=== PATIENT | male | born 1980 | race African-American/Black ===

== ENCOUNTER 2020-03-31 15:05 | Outpatient (REF) | payer OTHER, SELFPAY ==
[2020-03-31 16:52] LABS: Hematocrit 43.1 % (42-52); Hemoglobin 15.2 g/dl (14.0-18.0); Mean Corpuscular HGB Conc 35.3 g/dl (31.0-36.0); Mean Corpuscular Hemoglobin 28.8 pg (27.0-33.0); Mean Corpuscular Volume 81.8 fL (80-98); Mean Platelet Volume 11.2 fL (9.4-12.4); Platelet Count 206 X10*3/uL (160-400); Red Blood Count 5.27 X10*6/uL (4.60-5.80); Red Cell Distribution Width 11.9 % (11.0-16.0); White Blood Count 4.4 X10*3/uL (4.8-10.8)
[2020-03-31 16:59] LABS: Estimated Average Glucose 266 mg/dL; Hemoglobin A1c % 10.9 %
[2020-03-31 17:33] LABS: Alanine Aminotransferase 28 U/L (0-40); Albumin Level 4.8 g/dL (3.5-5.0); Alkaline Phosphatase 80 U/L (39-117); Anion Gap 18 (12-20); Aspartate Amino Transferase 21 U/L (5-37); Bilirubin Direct 0.3 mg/dL (0.0-0.5); Bilirubin Total 1.3 mg/dL (0.0-1.0); Blood Urea Nitrogen 14 mg/dL (9-16); Calcium 9.7 mg/dL (8.4-10.2); Carbon Dioxide 21 mmol/L (22-29); Chloride 96 mmol/L (96-108); Cholesterol 278 mg/dL; Estimated Glomerular Filt Rate 53; Glucose Random 412 mg/dL (60-115); HDL Cholesterol 32 mg/dL; Potassium 4.1 mmol/l (3.3-5.1); Sodium 131 mmol/L (135-145); Total Protein 8.2 g/dL (6.5-8.0); Triglycerides > 1250 mg/dL
== END 2020-03-31 15:06 | disposition home or self-care (01) ==
LOC: HO.HMGCLDS 15:05
PROVIDERS: PCP Nurse Practitioner Family; Visit Provider Internal Medicine
DX: R73.9 Hyperglycemia, unspecified (principal)
CPT/HCPCS: 36415; 80048; 80061; 80076; 83036; 85027

== ENCOUNTER 2020-04-12 08:04 | Outpatient (REF) | payer OTHER, SELFPAY ==
[2020-04-12 11:45] LABS: Alanine Aminotransferase 41 U/L (0-40); Albumin Level 4.2 g/dL (3.5-5.0); Alkaline Phosphatase 53 U/L (39-117); Anion Gap 14 (12-20); Aspartate Amino Transferase 28 U/L (5-37); Bilirubin Total 1.5 mg/dL (0.0-1.0); Blood Urea Nitrogen 12 mg/dL (9-16); Calcium 8.9 mg/dL (8.4-10.2); Carbon Dioxide 22 mmol/L (22-29); Chloride 109 mmol/L (96-108); Cholesterol 117 mg/dL; Estimated Glomerular Filt Rate > 60; Glucose Fasting 84 mg/dL (60-99); HDL Cholesterol 30 mg/dL; LDL Cholesterol Calculated 66 mg/dl; Potassium 3.8 mmol/L (3.3-5.1); Sodium 141 mmol/L (135-145); Total Protein 6.6 g/dL (6.5-8.0); Triglycerides 107 mg/dL
[2020-04-12 12:03] LABS: Microalbum/Creatinine Ratio Ur 2.6 ug/mg cr
== END 2020-04-12 08:05 | disposition home or self-care (01) ==
LOC: HO.HMGCLDS 08:04
PROVIDERS: PCP Nurse Practitioner Family; Visit Provider Nurse Practitioner Family
DX: R73.9 Hyperglycemia, unspecified (principal)
CPT/HCPCS: 36415; 80053; 80061; 82043

== ENCOUNTER 2020-05-03 10:58 | Outpatient (REF) | payer OTHER, SELFPAY ==
--- NOTE | ~2020-05-03 | US_ITS ---
EXAMINATION: US THYROID CLINICAL INFORMATION: Localized swelling, mass and lump, neck. COMPARISON: None TECHNIQUE: Linear transducer woodard-scale and color Doppler examination with attention to the region of the thyroid. FINDINGS: SIZE: Measurements of the thyroid lobes and nodules are given in sagittal, anteroposterior and transverse dimensions respectively. Right Thyroid Lobe: 5.6 x 1.8 x 2.0 cm, volume 10.5 mL. Parenchyma: The gland echotexture is homogeneous. Thyroid vascularity is normal. Left Thyroid Lobe: 5.3 x 1.7 x 1.9 cm, volume 9.0 mL. Parenchyma: The gland echotexture is homogeneous. Thyroid vascularity is normal. Isthmus: 0.7 cm in maximum AP dimension. No focal thyroid nodule is seen. NODES: 1.05 cm left level 3 lymph node. As a central echogenic fatty hilum. Per the mobile ui developer's notes, this is seen at the level of the palpable abnormality of concern. Inferiorly, at level 4 there is a 1.3 cm rounded lymph node. US/US thyroid IMPRESSION: Normal appearance of the thyroid. No thyroid nodules seen. Per the mobile ui developer's notes, the palpable abnormality of concern corresponds to a prominent but not pathologically enlarged left level 3 lymph node that has benign morphologic features. Inferiorly there is a rounded, borderline enlarged 1.3 cm left level 4 lymph node. This has a somewhat heterogeneous appearance and is nonspecific. Consider further evaluation with contrast-enhanced neck CT as clinically indicated.
[2020-05-03 14:01] LABS: MANUAL DIFF FLAG NO
[2020-05-03 14:14] LABS: Basophils Percent Auto 0.7 % (0-2); Eosinophils Absolute Auto 0.1 X10*3/uL (0.0-0.4); Eosinophils Percent Auto 1.5 % (0-4); Hematocrit 39.2 % (42-52); Hemoglobin 13.2 g/dl (14.0-18.0); Lymphocytes Absolute Auto 2.1 X10*3/uL (1.2-4.9); Mean Corpuscular HGB Conc 33.7 g/dl (31.0-36.0); Mean Corpuscular Hemoglobin 28.9 pg (27.0-33.0); Mean Corpuscular Volume 85.8 fL (80-98); Mean Platelet Volume 10.5 fL (9.4-12.4); Monocytes Absolute Auto 0.4 X10*3/uL (0.1-1.2); Monocytes Percent Auto 10.9 % (2-11); Neutrophils Absolute Auto 1.5 X10*3/uL (2.0-8.3); Neutrophils Percent Auto 35.9 % (45-73); Platelet Count 226 X10*3/uL (160-400); Red Blood Count 4.57 X10*6/uL (4.60-5.80)
[2020-05-03 14:39] LABS: Alanine Aminotransferase 22 U/L (0-40); Albumin Level 4.4 g/dL (3.5-5.0); Alkaline Phosphatase 54 U/L (39-117); Anion Gap 12 (12-20); Aspartate Amino Transferase 19 U/L (5-37); Bilirubin Direct 0.2 mg/dL (0.0-0.5); Bilirubin Total 0.5 mg/dL (0.0-1.0); Blood Urea Nitrogen 19 mg/dL (9-16); Carbon Dioxide 27 mmol/L (22-29); Chloride 104 mmol/L (96-108); Estimated Glomerular Filt Rate > 60; Glucose Random 92 mg/dL (60-115); Potassium 4.3 mmol/L (3.3-5.1); Sodium 139 mmol/L (135-145); Total Protein 6.8 g/dL (6.5-8.0)
[2020-05-03 14:55] LABS: Free T4 (Free Thyroxine) 0.89 ng/dL (0.71-1.85)
[2020-05-03 15:04] LABS: Thyroid Stimulating Hormone 1.52 uIU/mL (0.32-4.0)
== END 2020-05-03 10:59 | disposition home or self-care (01) ==
LOC: HO.HMGCX 10:58
PROVIDERS: PCP Nurse Practitioner Family; Visit Provider Nurse Practitioner Family
DX: R22.1 Localized swelling, mass and lump, neck (principal); R17 Unspecified jaundice
CPT/HCPCS: 36415; 76536; 80053; 82248; 84439; 84443; 85025

== ENCOUNTER 2020-08-15 06:46 | Outpatient (REF) | payer OTHER, SELFPAY ==
[2020-08-15 12:16] LABS: Estimated Average Glucose 128 mg/dL; Hemoglobin A1C 152.0811 umol/L; Hemoglobin A1c % 6.1 %
[2020-08-15 12:18] LABS: Alanine Aminotransferase 18 U/L (0-40); Alkaline Phosphatase 57 U/L (39-117); Anion Gap 11 (12-20); Aspartate Amino Transferase 21 U/L (5-37); Bilirubin Total 0.5 mg/dL (0.0-1.0); Blood Urea Nitrogen 14 mg/dL (9-16); Calcium 8.9 mg/dL (8.4-10.2); Carbon Dioxide 22 mmol/L (22-29); Chloride 112 mmol/L (96-108); Cholesterol 142 mg/dL; Estimated Glomerular Filt Rate > 60; Glucose Fasting 88 mg/dL (60-99); HDL Cholesterol 32 mg/dL; LDL Cholesterol Calculated 71 mg/dl; Sodium 141 mmol/L (135-145); Total Protein 6.5 g/dL (6.5-8.0); Triglycerides 199 mg/dL
== END 2020-08-15 06:47 | disposition home or self-care (01) ==
LOC: HO.HMGCLDS 06:46
PROVIDERS: PCP Nurse Practitioner Family; Visit Provider Nurse Practitioner Family
DX: E11.9 Type 2 diabetes mellitus without complications (principal); R17 Unspecified jaundice
CPT/HCPCS: 36415; 80053; 80061; 83036

== ENCOUNTER 2020-12-29 08:28 | Outpatient (REF) | payer OTHER, SELFPAY ==
--- NOTE | ~2020-12-29 | XR_ITS ---
EXAMINATION: XR first finger, RIGHT CLINICAL INFORMATION: Pain COMPARISON: None TECHNIQUE: Three views of the right thumb. FINDINGS: There is no evidence of acute fracture or dislocation of the right thumb. No significant soft tissue swelling is appreciated. No radiopaque foreign body. Joint spaces maintained. XR/XR finger RT min 2V IMPRESSION: No significant bony abnormality of the right thumb.
[2020-12-29 11:30] LABS: Appearance Urine CLEAR; Color Urine YELLOW; Glucose Urine UA NEG (NEG); Leukocyte Esterase Urine NEG (NEG); Nitrite Urine NEG (NEG); PH 5.5 (5.0-8.0); Specific Gravity - Urine >= 1.030 (1.005-1.025); Urine Blood NEG (NEG); Urine Ketones NEG (NEG); Urine Protein NEG (NEG-TRACE)
[2020-12-29 11:58] LABS: Estimated Average Glucose 123 mg/dL; Hemoglobin A1c % 5.9 %
[2020-12-29 11:59] LABS: Alanine Aminotransferase 35 U/L (0-40); Albumin Level 4.3 g/dL (3.5-5.0); Alkaline Phosphatase 59 U/L (39-117); Anion Gap 12 (12-20); Aspartate Amino Transferase 21 U/L (5-37); Bilirubin Total 0.8 mg/dL (0.0-1.0); Blood Urea Nitrogen 10 mg/dL (9-16); Calcium 9.2 mg/dL (8.4-10.2); Carbon Dioxide 24 mmol/L (22-29); Chloride 110 mmol/L (96-108); Cholesterol 177 mg/dL; Estimated Glomerular Filt Rate > 60; Glucose Fasting 101 mg/dL (60-99); HDL Cholesterol 42 mg/dL; LDL Cholesterol Calculated 119 mg/dl; Potassium 4.1 mmol/L (3.3-5.1); Sodium 142 mmol/L (135-145); Total Protein 6.9 g/dL (6.5-8.0); Triglycerides 83 mg/dL
== END 2020-12-29 08:29 | disposition home or self-care (01) ==
LOC: HO.HMGCX 08:28
PROVIDERS: PCP Nurse Practitioner Family; Visit Provider Nurse Practitioner Family
DX: M79.644 Pain in right finger(s) (principal); E11.9 Type 2 diabetes mellitus without complications
CPT/HCPCS: 36415; 73140; 80053; 80061; 81003; 83036

== ENCOUNTER 2021-01-08 08:19 | Outpatient (REF) | payer OTHER, SELFPAY ==
--- NOTE | ~2021-01-08 | XR_ITS ---
EXAMINATION: BILATERAL KNEE X-RAY CLINICAL INFORMATION: Pain COMPARISON: Previous knee x-rays March 2018 TECHNIQUE: Standing AP view of both knees and sunrise and lateral view of the right knee FINDINGS: Right: Bone alignment is normal. No fracture or dislocation is seen. There is evidence of previous ACL repair. There is arthritis at the medial femoral tibial joint with joint space narrowing and osteophyte formation. There is lateral degenerative meniscal calcification. There are small osteophytes at the patellofemoral joint. There is no joint effusion. Standing AP view of the left knee demonstrates evidence of previous ACL repair. XR/XR knee standing BI IMPRESSION: Right knee: Evidence of previous ACL repair. Arthritis. Left knee: Evidence of previous ACL repair.
--- NOTE | ~2021-01-08 | XR_ITS ---
EXAMINATION: BILATERAL KNEE X-RAY CLINICAL INFORMATION: Pain COMPARISON: Previous knee x-rays March 2018 TECHNIQUE: Standing AP view of both knees and sunrise and lateral view of the right knee FINDINGS: Right: Bone alignment is normal. No fracture or dislocation is seen. There is evidence of previous ACL repair. There is arthritis at the medial femoral tibial joint with joint space narrowing and osteophyte formation. There is lateral degenerative meniscal calcification. There are small osteophytes at the patellofemoral joint. There is no joint effusion. Standing AP view of the left knee demonstrates evidence of previous ACL repair. XR/XR knee RT 2V IMPRESSION: Right knee: Evidence of previous ACL repair. Arthritis. Left knee: Evidence of previous ACL repair.
== END 2021-01-08 08:20 | disposition home or self-care (01) ==
LOC: HO.HOSX 08:19
PROVIDERS: Visit Provider Orthopaedic Surgery
DX: M17.30 Unilateral post-traumatic osteoarthritis, unspecified knee (principal); Z98.890 Other specified postprocedural states
CPT/HCPCS: 73560; 73565; 99212; J1100

== ENCOUNTER 2021-01-10 12:34 | Outpatient (REF) | payer OTHER, SELFPAY ==
--- NOTE | ~2021-01-10 | XR_ITS ---
EXAMINATION: XR HAND, RIGHT CLINICAL INFORMATION: Pain. COMPARISON: None TECHNIQUE: PA, lateral, and oblique views of the right hand. FINDINGS: No acute fracture or dislocation. There is no bony erosion. Alignment is felt to be within normal limits. No significant degenerative change is seen here. There is no soft tissue calcification. XR/XR hand RT min 3V IMPRESSION: No bony finding.
== END 2021-01-10 12:35 | disposition home or self-care (01) ==
LOC: HO.HOSX 12:34
PROVIDERS: PCP Nurse Practitioner Family; Visit Provider Orthopaedic Surgery
DX: M79.644 Pain in right finger(s) (principal); M79.641 Pain in right hand
CPT/HCPCS: 73130; 99202

== ENCOUNTER 2021-01-23 08:15 | Outpatient (REF) | payer OTHER, SELFPAY ==
--- NOTE | ~2021-01-23 | MR_ITS ---
EXAMINATION: MR HAND WITHOUT CONTRAST, RIGHT CLINICAL INFORMATION: Pain in right hand. Patient reports injury 12/23/2020 with pain and weakness first carpal/metacarpal. COMPARISON: XR right hand 01/10/2021. TECHNIQUE: MRI of the right hand was obtained using routine sequences on a high-field strength magnet. FINDINGS: There is suboptimal evaluation of the articular cartilage in the visualized joints because of the small nature of the joints relative to the large [id number] to include most of the hand. There appears to be some narrowing of the 1st carpometacarpal joint which is likely indicative of cartilage thinning. There is a small effusion of the 1st CMC joint but only extending into a volar recess of the joint. There is no fracture or malalignment. The tendons and ligaments are unremarkable. 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
== END 2021-01-23 08:16 | disposition home or self-care (01) ==
LOC: HO.MRI 08:15
PROVIDERS: Visit Provider Orthopaedic Surgery
DX: M79.641 Pain in right hand (principal)
CPT/HCPCS: 73218

== ENCOUNTER → 2021-01-31 09:59 | Outpatient (BNVA) | payer OTHER, SELFPAY | PROVIDERS: PCP Nurse Practitioner Family; Visit Provider Orthopaedic Surgery | DX: M79.644 Pain in right finger(s) (principal) | CPT/HCPCS: 20605; 99212; J1020 ==

== ENCOUNTER → 2021-02-15 08:33 | Outpatient (BNVA) | payer OTHER, SELFPAY | PROVIDERS: PCP Nurse Practitioner Family; Visit Provider Orthopaedic Surgery | DX: M17.30 Unilateral post-traumatic osteoarthritis, unspecified knee (principal); Z98.890 Other specified postprocedural states | CPT/HCPCS: 99212 ==

== ENCOUNTER 2021-02-21 09:04 | Outpatient (REF) | payer OTHER, SELFPAY ==
[2021-02-21 12:18] LABS: Syphilis Screen Nonreactive (Nonreactive)
[2021-02-21 12:26] LABS: HIV AB/AG Nonreactive (Nonreactive); HIV Num 1 0.06 S/CO (0.00-0.99)
[2021-02-21 16:18] LABS: CT PCR NOT DETECTED (Not Detect.); NG PCR NOT DETECTED (Not Detect.)
[2021-02-23 05:27] LABS: Herpes Simplex Type 1 IgG <0.90 index; Herpes Simplex Type 2 IgG <0.90 index
== END 2021-02-21 09:05 | disposition home or self-care (01) ==
LOC: HO.HMGCLDS 09:04
PROVIDERS: PCP Nurse Practitioner Family; Visit Provider Nurse Practitioner Family
DX: Z01.84 Encounter for antibody response examination (principal); Z11.3 Encounter for screening for infections with a predominantly sexual mode of transmission; Z11.4 Encounter for screening for human immunodeficiency virus [HIV]
CPT/HCPCS: 86695; 86696; 86780; 87389; 87491; 87591

== ENCOUNTER 2021-03-22 09:18 | Outpatient (REF) | payer OTHER, SELFPAY ==
[2021-03-22 11:00] LABS: COVID-19 Test Negative (Negative)
== END 2021-03-22 09:19 | disposition home or self-care (01) ==
LOC: HO.LAB 09:18
PROVIDERS: Visit Provider Internal Medicine
DX: Z20.822 Contact with and (suspected) exposure to COVID-19 (principal)
CPT/HCPCS: 87635; C9803

== ENCOUNTER 2021-06-12 07:37 | Outpatient (REF) | payer OTHER, SELFPAY ==
[2021-06-12 11:54] LABS: Alanine Aminotransferase 31 U/L (0-40); Albumin Level 4.4 g/dL (3.5-5.0); Alkaline Phosphatase 55 U/L (39-117); Anion Gap 11 (12-20); Aspartate Amino Transferase 20 U/L (5-37); Bilirubin Total 1.1 mg/dL (0.0-1.0); Blood Urea Nitrogen 15 mg/dL (9-16); Calcium 9.3 mg/dL (8.4-10.2); Carbon Dioxide 28 mmol/L (22-29); Chloride 106 mmol/L (96-108); Cholesterol 236 mg/dL; Estimated Glomerular Filt Rate > 60; Glucose Fasting 114 mg/dL (60-99); HDL Cholesterol 38 mg/dL; LDL Cholesterol Calculated 154 mg/dl; Potassium 4.1 mmol/L (3.3-5.1); Sodium 141 mmol/L (135-145); Total Protein 7.2 g/dL (6.5-8.0); Triglycerides 221 mg/dL
[2021-06-14 23:32] LABS: Herpes Simplex Type 1 IgG <0.90 index; Herpes Simplex Type 2 IgG <0.90 index
== END 2021-06-12 07:38 | disposition home or self-care (01) ==
LOC: HO.HMGCLDS 07:37
PROVIDERS: Visit Provider Nurse Practitioner Family
DX: Z11.3 Encounter for screening for infections with a predominantly sexual mode of transmission (principal); E78.5 Hyperlipidemia, unspecified
CPT/HCPCS: 36415; 80053; 80061; 86695; 86696

== ENCOUNTER 2022-05-07 17:06 | Outpatient (REF) | payer OTHER, SELFPAY ==
[2022-05-07 18:12] LABS: Influenza A PCR NEGATIVE (Negative); Influenza B PCR NEGATIVE (Negative); Resp Syncy Virus RNA Qual PCR NEGATIVE (Negative); SARS COV2 PCR INHOUSE NEGATIVE (Negative)
== END 2022-05-07 17:07 | disposition home or self-care (01) ==
LOC: HO.LNP 17:06
PROVIDERS: Visit Provider Nurse Practitioner Family
DX: J31.0 Chronic rhinitis (principal); Z20.822 Contact with and (suspected) exposure to COVID-19
CPT/HCPCS: 0241U

== ENCOUNTER 2022-10-25 09:08 | Outpatient (AMB) | payer OTHER, SELFPAY ==
[2022-10-25 09:11] VITALS: BP 118/74; PULSE 82; TEMP 36.2; O2SAT 96; BMI 37.3
--- NOTE | 2022-10-25 09:11 | MHC.OFFWIV ---
Intake Vital Signs 10/25/22 09:11 Height 6 ft Weight 275 lb BMI 37.3 BP 118/74 Blood Pressure Location Lt brachial Position Sitting Pulse 82 Pulse Source Pulse Oximeter Temp 97.1 F Temp Source Temporal Artery Scan Pulse Oximetry (%) 96 Intake Visit Reasons: EP Back/Groin pain 1 month Intake Note: pt is here for back/groin pain for 1x month Patient Tobacco Use Status: Former Tobacco user Allergies No Known Allergies [No Known Allergies*] Allergy (Verified 10/25/22 09:11) Do you need a note to return to daycare/school/sports/work: Yes HPI EP Back/Groin pain 1 month HPI Details 42-year-old male presents to the office for a sick visit. For the past month patient is complaining of back pain. His job entails a 1 [address] ride in the morning. He started reporting sharp pain on the right side of the lower back sometimes radiating to below the scrotum. Pain is worse when he is sitting upright. And relieved when he is lying down. No urinary difficulties. Bowel movements are regular. But experiences pain when he sits on the toilet. History of low back pain in the past. 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 He prefers not to take the muscle relaxants. [facility] Surgical History History of left knee surgery History of medial meniscus repair of right knee History of right knee surgery Family History Father No problems noted. Mother No problems noted. Social History Housing: House Alcohol intake: never Patient Tobacco Use Status: Former Tobacco user Years Smoked: quit 2016 e-Cigarette/Vaping Use: Currently Using Second Hand Smoke Exposure: No service: Yes Current occupational status: employed Current occupation: [employer] Current occupational exposures/hazards: No Cognitive needs: No Hearing needs: No Vision needs: No Physical Exam Vital Signs: Last Vital Signs Temp 97.1 F 10/25/22 09:11 Pulse 82 10/25/22 09:11 BP 118/74 10/25/22 09:11 Pulse Ox 96 10/25/22 09:11 BMI result Body Mass Index 37.3 Const General: cooperative and healthy appearing Nutritional Appearance: well nourished Orientation/consciousness: patient oriented x3 Limitations: no limitations HEENT Head: Yes normal to inspection Eyes General: appearance normal, both eyes and all related structures Neck Neck: Yes normal visual inspection Chest Chest palpation & inspection: normal palpation of entire chest wall Resp Effort & Inspection: normal respiratory effort Back/Spine/Pelvis Other: Back: No spinal tenderness. Scoliosis. No paraspinal spasm. Right and left hips: No pain on internal and external rotation. Straight leg raising test on the right side causes discomfort in the lower back. Genital: Testicles are normal, no tenderness pain Neuro General: patient oriented x3 Assessment & Plan Assessment & Plan (1) Low back pain: Code(s): M54.50 - Low back pain, unspecified Plan: Meloxicam called in. Patient was offered physical therapy but he has declined at the moment. Stretching exercises suggested. Coding Level of Care Code Est Pt Level 3 (52297) Diagnoses Low back pain M54.50
== END 2022-10-25 10:06 | disposition home or self-care (01) ==
PROVIDERS: PCP Nurse Practitioner Family; Visit Provider Internal Medicine
DX: M54.50 Low back pain, unspecified (principal)
CPT/HCPCS: 99213

== ENCOUNTER 2022-11-27 15:50 | Outpatient (REF) | payer OTHER, SELFPAY ==
--- NOTE | ~2022-11-27 | XR_ITS ---
EXAMINATION: XR LUMBOSACRAL SPINE CLINICAL INFORMATION: Lower back pain. COMPARISON: None available. TECHNIQUE: Three views of the lumbosacral spine. FINDINGS: Levocurvature of the lumbar spine. The lumbar lordosis is maintained. No acute fracture or subluxation. No loss of vertebral body height. Mild loss of intervertebral disc height with tiny endplate osteophytes at L4-L5 and L5-S1. No concerning lytic or blastic osseous lesion. No abnormal soft tissue calcification. XR/XR lumbar spine 2-3V IMPRESSION: 1. Levocurvature of the lumbar spine. 2. Mild degenerative disc disease at L4-L5 and L5-S1.
== END 2022-11-27 15:51 | disposition home or self-care (01) ==
LOC: HO.HMGCX 15:50
PROVIDERS: PCP Nurse Practitioner Family; Visit Provider Nurse Practitioner Family
DX: M54.50 Low back pain, unspecified (principal)
CPT/HCPCS: 72100

== ENCOUNTER 2022-12-18 11:29 | Outpatient (AMB) | payer OTHER, SELFPAY ==
[2022-12-18 11:40] VITALS: BP 120/68; PULSE 51; O2SAT 97; BMI 36.5
--- NOTE | 2022-12-18 11:40 | MHC.PC.OV ---
Vital Signs 12/18/22 11:40 Height 6 ft Weight 269 lb 4 oz BMI 36.5 BP 120/68 Blood Pressure Location Rt brachial Position Sitting Pulse 51 Pulse Source Pulse Oximeter Pulse Oximetry (%) 97 Oxygen Delivery Method Room Air Intake Visit Reasons: Annual PE Allergies No Known Allergies [No Known Allergies*] Allergy (Verified 12/18/22 11:43) Tobacco use date assessed: 12/18/22 Dental Screening Dental Screen Date: 12/18/22 Did you have a dental visit in the last 12 months?: Yes Did you have a dental problem in the last 6 months where you did not have access to dental care?: No Was dental information given to patient?: Patient has dentist HPI Annual PE HPI Details Pt is here for a PE. Will order labs. Diabetes: Currently on a statin, pt reports not checking his sugar in quite some time. reinforced importance of tight glucose control. Pt denies any polyuria, polydipsia. He does report intermittent neuropathy. Pt reports he will schedule his own eye exam. He understands the s/s of hypoglycemia and how to correct it. Lower back pain with radiculopathy. want a MRI, though pt will be participating in PT first. He does report feeling like he was kicked in the testicles, but denies any s/s of cauda equina. Lastly, pt reports ? IBS-D. eats certain things, has to run to the bathroom. Will have him try citrucel to help bulk up stools [facility] Surgical History History of left knee surgery History of medial meniscus repair of right knee History of right knee surgery Family History Father No problems noted. Mother No problems noted. Social History Housing: House Alcohol intake: never Patient Tobacco Use Status: Former Tobacco user Years Smoked: quit 2015 e-Cigarette/Vaping Use: Currently Using Second Hand Smoke Exposure: No service: Yes Current occupational status: employed Current occupation: [employer] Current occupational exposures/hazards: No Cognitive needs: No Hearing needs: No Vision needs: No Questionnaire Thrive Questionnaire Date Thrive assessed: 08/21/21 ИВАН-7 AMB Questionnaire ИВАН-7 Date ИВАН - 7 assessed: 08/21/21 Source: Developed by Drs. Parviz Salazar, Dorcas Leonard, Rusty Jeter and colleagues, with an educational yon from [employer]. Review of Systems Const Denies chills and Denies fever(s) Eyes Denies blurry vision ENT Denies vertigo, Denies dizziness and Denies sore throat Card Denies chest pain at rest, Denies chest pain with activity, Denies diaphoresis, Denies dyspnea and Denies dyspnea on exertion Resp Denies cough, Denies dyspnea, Denies dyspnea on exertion and Denies wheezing GI Denies abdominal pain, Denies melena, Denies hematochezia, Denies constipation, Denies diarrhea and Denies loose stools Denies hematuria Musc Denies numbness and Denies tingling Skin/Breast Denies lesions Neuro Denies vertigo, Denies dizziness, Denies numbness and Denies tingling Psych Denies anxiety, Denies depression, Denies homicidal ideation, Denies suicidal ideation and Denies other (substance abuse) Aller/Immun Denies wheezing Physical exam (Primary Care) Vital Signs: Last Vital Signs Pulse 51 12/18/22 11:40 BP 120/68 12/18/22 11:40 Pulse Ox 97 12/18/22 11:40 Oxygen Delivery Method Room Air 12/18/22 11:40 BMI result Body Mass Index 36.5 Tobacco/Smoking Status: Tobacco use Status Tobacco use date assessed 12/18/22 12/18/22 11:46 Patient Tobacco Use Status Former Tobacco user 12/18/22 11:40 e-Cigarette/Vaping Use Currently Using 12/18/22 11:40 Thrive Assessment: Date of Thrive Assessment Date Thrive assessed 08/21/21 12/18/22 11:40 Const General: cooperative Nutritional Appearance: well nourished Orientation/consciousness: patient oriented x3 HENMT Head: Yes normal to inspection, Yes normocephalic and Yes atraumatic Ears: TM's normal bilaterally Eyes General: appearance normal, both eyes and all related structures Alignment and Position: alignment normal and position normal Neck Neck: Yes normal visual inspection and Yes no lymphadenopathy Thyroid: Thyroid normal Resp Effort & Inspection: normal respiratory effort Auscultation: clear to auscultation bilaterally Cardio Rate: regular rate Rhythm: regular rhythm Heart sounds: S1 normal heart sound present, S2 normal heart sound present and no murmurs GI Palpation (GI): Soft to palpation and nontender Auscultation: normal bowel sounds Male General Exam: Yes normal external exam Penis: normal penis Scrotum: scrotum normal, testes descended bilaterally and no inguinal hernias Testes: no testicular mass Back/Spine/Pelvis Other: right lateral foot with open blister, without signs of infection. + sensation bilat, left foot without blisters or lesions. Skin Rashes: no rashes Neuro General: patient oriented x3, moves all extremities, no focal motor deficits and deep tendon reflexes 2+ bilaterally Romberg Test: Negative Psych Appearance: grossly normal Mental Status: mental status grossly normal Speech and movement: Normal speech and movement present Affect: normal affect Attitude: cooperative Thought process: Normal thought process present Thought content: Normal thought content present Insight: Good insight present (Psych) Judgement: Good judgement present (Psych) Results AMB Hemoglobin A1c AMB Hemoglobin A1c 5.9 % Last Edit by Sonia Huffman CMA on 12/18/22 12:11 Assessment and Plan Assessment & Plan (1) Erectile dysfunction: Code(s): N52.9 - Male erectile dysfunction, unspecified (2) Diabetes: Code(s): E11.9 - Type 2 diabetes mellitus without complications (3) Physical exam: Code(s): Z00.00 - Encounter for general adult medical examination without abnormal findings Orders: Orders Complete Blood Count Auto Diff Today E11.9 - Type 2 diabetes mellitus without complications, Z00.00 - Encounter for general adult medical examination without abnormal findings Lipid Panel Today E11.9 - Type 2 diabetes mellitus without complications, Z00.00 - Encounter for general adult medical examination without abnormal findings AMB Hemoglobin A1c Today E11.9 - Type 2 diabetes mellitus without complications Testosterone, Free/Total Today N52.9 - Male erectile dysfunction, unspecified Comprehensive [place]. Panel Fast Today E11.9 - Type 2 diabetes mellitus without complications, Z00.00 - Encounter for general adult medical examination without abnormal findings TSH reflex Free T4 Today E11.9 - Type 2 diabetes mellitus without complications, Z00.00 - Encounter for general adult medical examination without abnormal findings UA CC w/rflx Micro + Cult Today E11.9 - Type 2 diabetes mellitus without complications, Z00.00 - Encounter for general adult medical examination without abnormal findings Microalbumin, Random (w Creat) Today E11.9 - Type 2 diabetes mellitus without complications, Z00.00 - Encounter for general adult medical examination without abnormal findings Medications: New sildenafil administer 30 minutes to 4 hours before activity 100 mg PO DAILY 30 days PRN 30 tabs 0RF sexual activity Coding Level of Care Code Est Pt Prev Care 40-64y(12684) Diagnoses Erectile dysfunction N52.9 Diabetes E11.9 Physical exam Z00.00
== END 2022-12-18 12:24 | disposition home or self-care (01) ==
PROVIDERS: PCP Nurse Practitioner Family; Visit Provider Nurse Practitioner Family
DX: N52.9 Male erectile dysfunction, unspecified (principal); E11.9 Type 2 diabetes mellitus without complications; Z00.00 Encounter for general adult medical examination without abnormal findings
CPT/HCPCS: 83036; 99396

== ENCOUNTER 2022-12-28 07:49 | Outpatient (REF) | payer OTHER, SELFPAY ==
[2022-12-28 11:03] LABS: MANUAL DIFF FLAG NO
[2022-12-28 11:10] LABS: Basophils Percent Auto 0.9 % (0-2); Eosinophils Absolute Auto 0.1 X10*3/uL (0.0-0.4); Eosinophils Percent Auto 2.4 % (0-4); Hematocrit 43.4 % (42.0-52.0); Hemoglobin 15.1 g/dl (14.0-18.0); Lymphocytes Absolute Auto 1.4 X10*3/uL (1.2-4.9); Lymphocytes Percent Auto 42.2 % (20-40); Mean Corpuscular HGB Conc 34.8 g/dl (31.0-36.0); Mean Corpuscular Hemoglobin 29.6 pg (27.0-33.0); Mean Corpuscular Volume 85.1 fL (80.0-98.0); Mean Platelet Volume 10.8 fL (9.4-12.4); Monocytes Absolute Auto 0.4 X10*3/uL (0.1-1.2); Monocytes Percent Auto 10.7 % (2-11); Neutrophils Absolute Auto 1.4 x10*3/uL (2.0-8.3); Neutrophils Percent Auto 43.8 % (45-73); Platelet Count 209 X10*3/uL (160-400); Red Cell Distribution Width 12.4 % (11.0-16.0); White Blood Count 3.3 X10*3/uL (4.8-10.8)
[2022-12-28 11:18] LABS: Estimated Average Glucose 111 mg/dL; Hemoglobin A1c % 5.5 % (<6.0)
[2022-12-28 11:36] LABS: Alanine Aminotransferase 26 U/L (0-40); Albumin Level 4.3 g/dL (3.5-5.0); Alkaline Phosphatase 46 U/L (39-117); Anion Gap 13 (12-20); Aspartate Amino Transferase 19 U/L (5-37); Bilirubin Total 1.2 mg/dL (0.0-1.0); Blood Urea Nitrogen 10 mg/dL (9-16); Calcium 9.4 mg/dL (8.4-10.2); Carbon Dioxide 23 mmol/L (22-29); Chloride 107 mmol/L (96-108); Cholesterol 229 mg/dL (<200); Estimated Glomerular Filt Rate > 60; Glucose Fasting 108 mg/dL (60-99); HDL Cholesterol 44 mg/dL (>40); LDL Cholesterol Calculated 161 mg/dL (<100); Potassium 3.9 mmol/L (3.3-5.1); Sodium 139 mmol/L (135-145); Total Protein 7.2 g/dL (6.5-8.0); Triglycerides 122 mg/dL (<150)
[2022-12-28 11:40] LABS: TSH reflex Free T4 1.21 uIU/mL (0.32-4.0)
[2023-01-02 11:49] LABS: Testosterone, Free 67.3 pg/mL (35.0-155.0); Testosterone, Total 360 ng/dL (250-1100)
== END 2022-12-28 07:50 | disposition home or self-care (01) ==
LOC: HO.HMGCLDS 07:49
PROVIDERS: PCP Nurse Practitioner Family; Visit Provider Nurse Practitioner Family
DX: Z00.00 Encounter for general adult medical examination without abnormal findings (principal); E11.9 Type 2 diabetes mellitus without complications; N52.9 Male erectile dysfunction, unspecified
CPT/HCPCS: 36415; 80053; 80061; 83036; 84402; 84403; 84443; 85025

== ENCOUNTER 2022-12-30 09:00 | Outpatient (RCR) | payer OTHER, SELFPAY ==
--- NOTE | 2022-12-20 09:50 | MHC.PT.EP ---
[facility] [place] Office [place] Office [place] Office [address] Hina Doherty [address] [phone] F: [phone] F: [phone] F: [phone] F: [phone] Physical Therapy Plan of Care Date of Evaluation: 12/20/22 Date of Surgery: n/a Diagnosis: LBP Assessment: Patient is a 42 year old male presenting to PT with complaints of pain in his low back. Pt reports onset of pain began September 2022 due to insidious onset but noticed it after repositioning in the car. He presents today with impairments in pain, lumbar ROM, core strength, hip strength, posture. 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 Clinical presentation today is most consistent with signs and sx associated with low back pain and pt will benefit from skilled PT 2 week x 4 weeks to address the following problems and impairments noted upon evaluation: pain, lumbar ROM, core strength, hip strength, posture. These problems limit the patient with the following functional activities: sitting, ADLs, work, driving, bending. The prescribed treatment plan of care is medically necessary. Co-morbidities of DM were identified and taken into considerations of plan of care. Pt was educated on HEP, role of PT, prognosis, POC. Frequency and Duration: The patient will be seen 2 x week x 4 weeks Short Term Goals: Pt will demonstrate improved hip MMT strength by 1/3 grade in 2 weeks for improved lumbopelvic stability. Pt will demonstrate ability to perform PPT with good core control in 2 weeks. Pt will demonstrate ability to sit without lateral trunk lean in 2 weeks for improved posture. [place] Goals: Pt will demonstrate improved Jani score by 10% in 4 weeks for improved functional mobility. Pt will demonstrate ability to sit in the car with his seat in normal position and min to no pain in 4 weeks for improved ability to drive to work. Pt will demonstrate ability to complete all ADLs including bending with min to no pain in 4 weeks for return to PLOF. Treatment Plan: Modalities to reduce pain, spasms and effusion. Manual therapy to restore motion and function. Therapeutic exercise to improve strength and flexibility. Neuromuscular re-education for posture and balance. Therapeutic activities to return to functional activities of daily living. Electronically signed by: Diana Brito, PT, DPT, ATC Please sign and return to therapist. Thank you for your referral.
--- NOTE | 2023-01-10 07:19 | MHC.PT.DC ---
[facility] [place] Office [place] Office [place] Office [address] Hina Doherty [address] [phone] F: [phone] F: [phone] F: [phone] F: [phone] Physical Therapy Discharge Report Diagnosis: LBP Date of Surgery: n/a Date of Evaluation: 12/20/22 Date of Discharge: 01/10/23 Treatments to Date: 4 Cancellations to Date: 1 No Shows to Date: 0 Discharge Status: Recommend MD Follow-up Discharge Summary: Pt has not been feeling any gains in PT thus far. He presented to his last visit requesting to cancel due to feeling sick. Was also stating he is scheduled for MRI and does not think PT is helping. Based on pt continued sx and upcoming MRI we decided it is best to hold PT at this time and wait for MRI results with MD follow up. Pt agreeing and therefore to be d/c. Electronically signed by: Diana Brito, PT, DPT, ATC Please sign and return to therapist. Thank you for your referral.
== END 2023-01-10 07:19 | disposition home or self-care (01) ==
LOC: HO.PTCHIC 09:00
PROVIDERS: PCP Nurse Practitioner Family; Visit Provider Nurse Practitioner Family
DX: M54.50 Low back pain, unspecified (principal)
CPT/HCPCS: 97110; 97161

== ENCOUNTER 2022-12-30 09:59 | Outpatient (REF) | payer OTHER, SELFPAY ==
[2022-12-30 14:13] LABS: Appearance Urine Clear; Color Urine Yellow; Glucose Urine UA Negative (Negative); Leukocyte Esterase Urine Negative (Negative); Nitrite Urine Negative (Negative); Specific Gravity - Urine 1.015 (1.005-1.025); Urine Blood Negative (Negative); Urine Ketones Negative (Negative); Urine Protein Negative (Neg-Trace)
[2022-12-30 14:33] LABS: Creatinine Urine 175.67 mg/dL; Microalbum/Creatinine Ratio Ur 2.8 ug/mg cr (<30)
== END 2022-12-30 10:00 | disposition home or self-care (01) ==
LOC: HO.HMGCLDS 09:59
PROVIDERS: PCP Nurse Practitioner Family; Visit Provider Nurse Practitioner Family
DX: Z00.00 Encounter for general adult medical examination without abnormal findings (principal); E11.9 Type 2 diabetes mellitus without complications; M51.36 Other intervertebral disc degeneration, lumbar region; M54.16 Radiculopathy, lumbar region; G89.29 Other chronic pain
CPT/HCPCS: 81003; 82043; 82570

== ENCOUNTER 2023-03-14 10:21 | Outpatient (AMB) | payer OTHER, SELFPAY ==
--- NOTE | 2023-03-14 10:35 | HO.SPINEOV ---
Intake Intake Visit Reasons: low back pain Intake Note: Mr. Martínez is here today c/o low back pain. MRI done @ [facility] Required: No Allergies No Known Allergies [No Known Allergies*] Allergy (Verified 12/18/22 11:43) Assessment & Plan Assessment & Plan (1) Synovial cyst of lumbar facet joint: Code(s): M71.38 - Other bursal cyst, other site Plan Dear Julius Thank you for referring Mr Martínez to our office today. He is a very nice 42-year-old gentleman who reports that sometime in October he was driving down the highway and repositioned himself in his seat in his car and as he was lifting himself up words he felt a severe pain in the right side of his lower back and then almost immediately a feeling of testicular discomfort. The pain wraps from his back down into his buttock and then underneath the crease of his thigh into his testicle. He did not have any pain down the leg, tingling or numbness down the legs. He got home that night, took some [id number] medicines for went to bed at seem to be better. Unfortunately later on the next day in the middle the night and awoke him again in the exact same way that it did when he was driving. This went on for the course of a few months and sometime around mid February the pain subsided. In the interim however, he had undergone an MRI showing significant facet arthropathy on the right at L4-5 with a synovial cyst. He was referred to see us for evaluation. PMH: History of diabetes, he tells me that his A1c is 5.5, controlled with diet. History of high cholesterol, knee surgery bilaterally. Social hx: He vapes marijuana daily, does not smoke tobacco or drink alcohol Medications: Atorvastatin Allergies: None Physical exam: He is awake alert oriented, gait strength and reflexes are normal Imaging review: Lumbar MRI done at [facility] shows levoscoliosis, mild disc degeneration, right-sided facet arthropathy at L4-5 with hyperintensity the joint and what appears to be a large synovial cyst projecting from the anterior portion of the joint on to the right L5 nerve. Impression: 42-year-old male presents with acute onset of back pain sometime in October 2022 which was associated with some testicular discomfort. The pain appears to have resolved on its own over time. His lumbar MRI did show evidence of scoliosis with facet arthropathy at L4-5 with what appears to be a large synovial cyst. It is well-known that these cysts can retract and reabsorbed over time. I suspect this is what happened. If the pain comes back, I would reimage him. We would reserve surgery strictly in the case that the pain became refractory to any treatment or was giving him severe radiculopathy. We would be glad to see him back if the symptoms return. Thank you for allowing us to care for your patient. The total time spent with this visit with this patient was 45 minutes reviewing history, physical exam, lumbar imaging review, and implementation of treatment plan or further diagnostic testing Leighton Rae MD,PhD [facility] Coding Level of Care Code New Pt Level 4 (30290) Diagnoses Synovial cyst of lumbar facet joint M71.38
== END 2023-03-14 11:04 | disposition home or self-care (01) ==
PROVIDERS: PCP Nurse Practitioner Family; Referring Provider Nurse Practitioner Family; Visit Provider Physician Assistant
DX: M71.38 Other bursal cyst, other site (principal)
CPT/HCPCS: 99204

== ENCOUNTER → 2023-03-14 10:21 | Outpatient (BNVA) | payer OTHER, SELFPAY | PROVIDERS: PCP Nurse Practitioner Family; Referring Provider Nurse Practitioner Family; Visit Provider Physician Assistant | DX: M71.38 Other bursal cyst, other site (principal) | CPT/HCPCS: 99202 ==

== ENCOUNTER 2023-04-29 09:32 | Outpatient (AMB) | payer OTHER, SELFPAY ==
--- NOTE | 2023-04-29 09:34 | MHC.PC.OV ---
Vital Signs 04/29/23 09:35 Height 6 ft Weight 263 lb BMI 35.7 BP 122/76 Blood Pressure Location Rt brachial Position Sitting Pulse 62 Pulse Source Pulse Oximeter Pulse Oximetry (%) 98 Oxygen Delivery Method Room Air Intake Visit Reasons: 4 month fu Intake Note: pt is for 4 month follow up Chemic Mangler Required: No Allergies No Known Allergies [No Known Allergies*] Allergy (Verified 04/29/23 09:50) Medication List - Last Reconciled 04/29/23 by DELFINA Heard alcohol swabs (Alcohol Prep Pads) 1 pad topical BID atorvastatin 20 mg PO BEDTIME blood-glucose meter (FreeStyle Lite Meter kit) Use to check blood sugar twice a day cetirizine 10 mg PO DAILY 90 days cholecalciferol (vitamin D3) 50 mcg PO DAILY sildenafil 100 mg PO DAILY PRN 30 days Tobacco use date assessed: 04/29/23 Dental Screening Dental Screen Date: 04/29/23 Did you have a dental visit in the last 12 months?: Yes Did you have a dental problem in the last 6 months where you did not have access to dental care?: No Was dental information given to patient?: Patient has dentist HPI 4 month fu HPI Details Pt is a diabetic, on a statin. A1C in office today is 6.0. Microalbumin is up to date. Denies polyuria, polydipsia, and neuropathy. Pt denies any signs and symptoms of hypoglycemia and does know how to correct it. Pt has not been checking his blood sugar often. Will refer for eye exam. Pt is not on an JULIA or ARB because he has lower blood pressure. May consider starting low-dose JULIA in the future. [facility] Medical History Lumbar degenerative disc disease Surgical History History of medial meniscus repair of right knee History of right knee surgery History of left knee surgery Family History Father No problems noted. Mother No problems noted. Social History Housing: House Alcohol intake: never Patient Tobacco Use Status: Former Tobacco user Years Smoked: quit 2016 e-Cigarette/Vaping Use: Currently Using Second Hand Smoke Exposure: No service: Yes Current occupational status: employed Current occupation: [employer] Current occupational exposures/hazards: No Cognitive needs: No Hearing needs: No Vision needs: No Questionnaire PHQ-9 Over the last 2 weeks, how often have you been bothered by any of the following problems? 1. Little interest or pleasure in doing things: not at all 2. Feeling down, depressed, or hopeless: not at all 3. Trouble falling or staying asleep, or sleeping too much: not at all 4. Feeling tired or having little energy: not at all 5. Poor appetite or overeating: not at all 6. Feeling bad about yourself - or that you are a failure or have let yourself or your family down: not at all 7. Trouble concentrating on things, such as reading the newspaper or watching television: not at all 8. Moving or speaking so slowly that other people could have noticed. Or the opposite - being so fidgety or restless that you have been moving around a lot more than usual: not at all 9. Thoughts that you would be better off or of hurting yourself in some way: not at all Total score: 0 Depression Screening Interpretation: Negative Depression Screening Done: Yes 74196 - PHQ-9 Billing: Yes Source: Developed by Drs. Parviz Salazar, Dorcas Leonard, Rusty Jeter and colleagues, with an educational yon from [employer]. Thrive Questionnaire Date Thrive assessed: 04/29/23 I am a: Patient What is your living situation today?: I have a steady place to live Within the past 12 months, did the food you bought not last and you didn't have the money to get more?: Never true Within the past 12 months, did you worry whether your food would run out before you got money to buy more?: Never true Do you have trouble paying for medicines?: No Do you have trouble getting transportation to medical appointments?: No Do you have trouble paying your heating and electricity bill?: No Do you have trouble taking care of your child, family member or friend?: No Do you have trouble with day-to-day activities such as bathing, preparing meals, shopping, managing finances, etc.?: No Are you currently unemployed and looking for a job?: No Are you interested in more education?: No Please select the resources that you would like help with: None Currently or been in a relationship where the following occur: no concerns reported THRIVE Score: 0 AUDIT C Alcohol Use Questionnaire (AUDIT-C) 1. How often do you have a drink containing alcohol?: 2-4 times a month 2. How many drinks containing alcohol do you have on a typical day when you are drinking?: 1 or 2 3. How often do you have six or more drinks on one occasion?: Never Total Score: 2 Score Reviewed/Action Taken: Yes ИВАН-7 AMB Questionnaire ИВАН-7 Date ИВАН - 7 assessed: 04/29/23 Feeling nervous, anxious, or on edge: 0 = Not at all Not being able to stop or control worryin = Not at all Worrying too much about different things: 0 = Not at all Trouble relaxin = Not at all Being so restless that it is hard to sit still: 0 = Not at all Becoming easily annoyed or irritable: 0 = Not at all Feeling afraid as if something awful might happen: 0 = Not at all Total ИВАН-7 score (0-4 normal; 5-9 mild; 10-14 moderate; 15-21 severe): 0 Source: Developed by Drs. Parviz Salazar, Dorcas Leonard, Rusty Jeter and colleagues, with an educational yon from [employer]. ИВАН-7 Assessment Billing ИВАН-7 Assessment Tool: ИВАН-7 Assessment 97171 Review of Systems Const Reports as per HPI Physical exam (Primary Care) Vital Signs: Last Vital Signs Pulse 62 04/29/23 09:35 BP 122/76 04/29/23 09:35 Pulse Ox 98 04/29/23 09:35 Oxygen Delivery Method Room Air 04/29/23 09:35 BMI result Body Mass Index 35.7 Tobacco/Smoking Status: Tobacco use Status Tobacco use date assessed 04/29/23 04/29/23 09:35 Patient Tobacco Use Status Former Tobacco user 04/29/23 09:35 e-Cigarette/Vaping Use Currently Using 04/29/23 09:35 PHQ-9: PHQ-9 Score PHQ-9: Total score 0 04/29/23 10:07 Depression Screening Interpretation: Negative Thrive Assessment: Date of Thrive Assessment Date Thrive assessed 04/29/23 04/29/23 09:44 Currently or been in a relationship where the following occur: no concerns reported Const General: cooperative Nutritional Appearance: obese Orientation/consciousness: patient oriented x3 Resp Effort & Inspection: normal respiratory effort Auscultation: clear to auscultation bilaterally Cardio Rate: regular rate Rhythm: regular rhythm Heart sounds: S1 normal heart sound present and S2 normal heart sound present Neuro General: patient oriented x3 Extrem Other: bilat feet: + sensation with use of monofilament, feet intact Psych Appearance: grossly normal Mental Status: mental status grossly normal Speech and movement: Normal speech and movement present Affect: normal affect Attitude: cooperative Thought process: Normal thought process present Thought content: Normal thought content present Insight: Good insight present (Psych) Judgement: Good judgement present (Psych) Results AMB Hemoglobin A1c AMB Hemoglobin A1c 6.0 % Last Edit by jC Carrero CMA on 04/29/23 09:58 Immunizations pneumoc 20-nahum conj-dip cr(PF) 0.5 mL IM syringe Performing Provider: DELFINA Heard Performing Location: [facility] [place] [facility] Administered by: Cj Carrero CMA on 04/29/23 10:07 Dose Route Admin Location Dispensed Lot Number Expiration Date [employer] 0.5 mL IM Right Deltoid 0.5 mL [id number] 10/09/23 6253-6747-17 [employer] VIS Given Date VIS Provided VIS Publication Date 04/29/23 Single Vaccine 21 Eligibility Eligibility Date Funding Source Not [facility] Eligible 04/29/23 Private Results Reviewed Results Reviewed: Laboratory Last Values Hgb A1c (Clinic) 6.0 % (4.0-6.0) 04/29/23 09:58 Assessment and Plan Assessment & Plan (1) Diabetes: Code(s): E11.9 - Type 2 diabetes mellitus without complications Plan: encouraged to cont to work on diet, and monitor BS more often Plan The patient agreed to the use of a medical education specialist for this encounter. Scribed for DELFINA Gann by Shayy Patrick medical education specialist, on 04/29/2023 at 09:50 EST. Orders: Orders Comprehensive [place]. Panel Fast Today E11.9 - Type 2 diabetes mellitus without complications UA CC w/rflx Micro + Cult Today E11.9 - Type 2 diabetes mellitus without complications Lipid Panel Today E11.9 - Type 2 diabetes mellitus without complications AMB Hemoglobin A1c Today Z13.9 - Encounter for screening, unspecified Pneumococcal 20 Immunization Today Z23 - Encounter for immunization Complete Blood Count Auto Diff Today E11.9 - Type 2 diabetes mellitus without complications TSH reflex Free T4 Today E11.9 - Type 2 diabetes mellitus without complications Referrals Optometry Referral E11.9 - Type 2 diabetes mellitus without complications Coding Level of Care Code Est Pt Level 3 (04496) Diagnoses Diabetes E11.9 Additional Codes ИВАН-7 Assessment Billing - ИВАН-7 Assessment Tool: ИВАН-7 Assessment 05422 ([id number])
[2023-04-29 09:35] VITALS: BP 122/76; PULSE 62; O2SAT 98; BMI 35.7
== END 2023-04-29 10:17 | disposition home or self-care (01) ==
PROVIDERS: PCP Nurse Practitioner Family; Visit Provider Nurse Practitioner Family
DX: E11.9 Type 2 diabetes mellitus without complications (principal); Z23 Encounter for immunization
CPT/HCPCS: 83036; 90471; 90677; 99213